=== PATIENT | female | born 1990 | race Caucasian/White ===

== ENCOUNTER 2018-01-04 18:08 | Outpatient (CLI) | END 2018-01-04 23:12 | disposition home or self-care (01) ==

== ENCOUNTER 2018-01-04 23:16 | Emergency (ER) | END 2018-01-05 03:05 | disposition home or self-care (01) ==

== ENCOUNTER 2018-04-21 12:20 | Outpatient (CLI) | END 2018-04-21 15:26 | disposition home or self-care (01) ==

== ENCOUNTER 2018-04-28 14:40 | Outpatient (CLI) | END 2018-04-28 21:52 | disposition home or self-care (01) ==

== ENCOUNTER 2018-04-30 10:16 | Inpatient (IN) | END 2018-05-03 17:18 | disposition home or self-care (01) | DRG 775 ==

== ENCOUNTER 2018-05-05 16:47 | Emergency (ER) | END 2018-05-05 19:43 | disposition home or self-care (01) ==

== ENCOUNTER 2019-04-05 12:49 | Emergency (ER) | payer MEDICAID ==
[~2019-04-05] VITALS: Ht 154.9 cm; Wt 61.7 kg
[~2019-04-05 12:49] MED LIST: BUTA1CAP38 PO
[2019-04-05 12:51] VITALS: BP 137/83; PULSE 95; RESP 16; Ht 154.9 cm; Wt 61.7 kg
[2019-04-05] MEDS ORDERED: ONDANSETRON 4 MG INJ IV STA (13:49)
[2019-04-05] MEDS ORDERED: DIPHENHYDRAMINE 50 MG INJ IV STA (13:49)
[2019-04-05] MEDS ORDERED: SOD CHLORIDE 0.9% 1,000 ML IV STA (13:49)
[2019-04-05] MEDS ORDERED: KETOROLAC 30 MG INJ IV STA (13:49)
--- NOTE | 2019-04-05 15:13 | ERD ---
ER Documentation Chief Complaint Chief Complaint headache x 5 days, light sensitivity HPI 28 yr old female complaining of headache x 5 days. States it has come and gone over the last 3 days. Took tylenol with mild alleviation. Denies any visual problems. Denies fevers. Denies any runny nose or cough. Denies medical problems. NKDA. Surgical history denies. Social history denies ROS All systems reviewed and are negative except as per history of present illness. Medications Home Meds Active Scripts Fsgvhavmkc-Skixdsgihwqlc-Phwhwtls* (Fioricet*) 50-300-40 Mg Capsule, 1 CAP PO Q4H PRN for HEADACHE, #30 CAP Prov:DAISY PAULINO PA-C 04/05/19 Allergies Allergies: Coded Allergies: No Known Allergy (Unverified , 11/12/14) PMhx/Soc Medical and Surgical Hx: pt denies Medical Hx, pt denies Surgical Hx Hx Alcohol Use: No Hx Substance Use: No Hx Tobacco Use: No FmHx Family History: No diabetes, No coronary disease, No other Physical Exam Vitals Vital Signs Date Temp Pulse Resp B/P (MAP) Pulse Ox O2 O2 Flow FiO2 Time Delivery Rate 04/05/19 99.0 95 16 137/83 98 12:51 (101) Physical Exam GENERAL: The patient is well-appearing, well-nourished, in no acute distress HEENT: Atraumatic. Conjunctivae are pink. Pupils equal, round, and reactive to light. There is no scleral icterus. Tympanic membranes clear bilaterally. Oropharynx clear. CHEST: Clear to auscultation bilaterally. There are no rales, wheezes or r honchi. HEART: Regular rate and rhythm. No murmurs, clicks, rubs or gallops. NEUROLOGIC: Alert and oriented. Cranial nerves II through XII intact. Motor strength in all 4 extremities with 5 out of 5 strength. Sensation grossly intact. Normal speech and gait Results 24 hrs Laboratory Tests Test 04/05/19 14:06 Bedside Urine pH (LAB) 5.5 Bedside Urine Protein (LAB) Negative Bedside Urine Glucose (UA) Negative Bedside Urine Ketones (LAB) 1+ Bedside Urine Blood Negative Bedside Urine Nitrite (LAB) Negative Bedside Urine Leukocyte Esterase (L Trace POC Beta HCG, Qualitative NEGATIVE Current Medications Medications Dose Sig/Denny Start Time Status Last (Trade) Ordered Route PRN Stop Time Admin Dose Reason Admin Sodium 1,000 ml @ Q1H STAT 04/05/19 DC 04/05/19 Chloride 1,000 mls/hr IV 13:49 14:06 04/05/19 14:48 Ondansetron 4 mg ONCE STAT 04/05/19 DC 04/05/19 HCl (Zofran IV 13:49 14:06 Inj) 04/05/19 13:50 Ketorolac 30 mg ONCE STAT 04/05/19 DC 04/05/19 Tromethamine IV 13:49 14:07 (Toradol) 04/05/19 13:50 25 mg ONCE STAT 04/05/19 DC 04/05/19 Diphenhydrami IV 13:49 14:06 ne HCl 04/05/19 13:50 (Benadryl) Procedures/MDM ER course: 1 L normal saline given ED. IV Toradol, Benadryl and Zofran given in ED. Urine negative. MDM: 28-year-old female presenting with headache. I have low suspicion for intracranial hemorrhage or neuro deficit. I have low suspicion for infectious process. Patient likely has tension headache. Patient is discharged with supportive medications and told to follow-up with primary care within 1 to 2 days for close evaluation. Patient is told symptoms change or worsen to return immediately to the ER. All questions answered at discharge Departure Diagnosis: Primary Impression: Headache Condition: Stable Patient Instructions: Self-Care for Headaches Referrals: COMMUNITY CLINICS YOU HAVE RECEIVED A MEDICAL SCREENING EXAM AND THE RESULTS INDICATE THAT YOU DO NOT HAVE A CONDITION THAT REQUIRES URGENT TREATMENT IN THE EMERGENCY DEPARTMENT. FURTHER EVALUATION AND TREATMENT OF YOUR CONDITION CAN WAIT UNTIL YOU ARE SEEN IN YOUR DOCTORS OFFICE WITHIN THE NEXT 1-2 DAYS. IT IS YOUR RESPONSIBILITY TO MAKE AN APPOINTMENT FOR FOLOW-UP CARE. IF YOU HAVE A PRIMARY DOCTOR --you should call your primary doctor and schedule an appointment IF YOU DO NOT HAVE A PRIMARY DOCTOR YOU CAN CALL OUR PHYSICIAN REFERRAL HOTLINE AT IF YOU CAN NOT AFFORD TO SEE A PHYSICIAN YOU CAN CHOSE FROM THE FOLLOWING [facility] [address] [facility] [address] [facility] [facility] [address] [facility] [address] [facility] [facility] [address] [facility]. [facility]. [address] Additional Instructions: Call your primary care doctor TOMORROW for an appointment during the next 1-2 days.See the doctor sooner or return here if your condition worsens before your appointment time. DAISY PAULINO PA-C Apr 05, 2019 15:13
== END 2019-04-05 15:03 | disposition home or self-care (01) ==
LOC: FTE 12:49
DX: R51 Headache (principal)
CPT/HCPCS: 81003; 81025; J1200; J1885; J2405; J7030; 96374; 96375